=== PATIENT | female | born 1955 | race Native Hawaiian/Other Pacific Islander ===

== ENCOUNTER 2017-04-28 15:55 | Outpatient (CLI) | payer OTHER | END 2017-04-28 17:00 | disposition home or self-care (01) | LOC: RAD 15:55 | DX: M19.041 Primary osteoarthritis, right hand (principal); M19.042 Primary osteoarthritis, left hand ==

== ENCOUNTER 2017-09-08 12:45 | Outpatient (CLI) | payer OTHER | END 2017-09-08 20:15 | disposition home or self-care (01) | LOC: RAD 12:45 | DX: M47.812 Spondylosis without myelopathy or radiculopathy, cervical region (principal) ==